=== PATIENT | male | born 1995 | race Caucasian/White ===

== ENCOUNTER 2019-09-26 17:59 | Emergency (ER) | payer OTHER, BC ==
[~2019-09-26] VITALS: Ht 167.6 cm; Wt 86.6 kg
[2019-09-26 18:13] VITALS: BP 118/69
[2019-09-26] MEDS ORDERED: KETOROLAC 30 MG/ML VIAL IVP ONE (18:40)
[2019-09-26] MEDS ORDERED: NACL 0.9% 500 ML IV SCH (18:40)
--- NOTE | 2019-09-26 18:50 | NUR ---
PT C/O RLQ AB PAIN AGGRAVATED BY RT LEG MOVEMENTS, HEMAURIA TODAY. DENIES N/V/D OR CONSTIPATION. EXTREME TENDERNESS TO TOUCH, BOWEL SOUNDS ACTIVE. WENT TO THE ER OF [place] YESTERDAY AND DID CT W/ CONTRAST & U/S, STATES POSSIBLE ENLARGED LYMPH NODE. PT ALERT AND AWAKE. TACHY AT 105. AMBULATORY WITH STEADY GAIT PMH: APPENDECTOMY 5 YEARS AGO MEDS: DISCHARGED WITH TRAMADOL YESTERDAY FROM [place] ER, SOME RELIEF
--- NOTE | 2019-09-26 18:53 | NUR ---
URINE COLLECTED, LAB AT BEDSIDE
--- NOTE | 2019-09-26 19:04 | NUR ---
IV INSERTED AND BOLUS 500 ML NACL STARTED
[2019-09-26 19:06] LABS: BASOPHILS # (AUTO) 0.1 K/uL (0.00-0.22); BASOPHILS % (AUTO) 0.3 % (0.0-2.0); EOSINOPHILS % (AUTO) 0.2 % (0.0-4.0); HEMATOCRIT 45.4 % (36-52); HEMOGLOBIN 15.8 g/dL (12.0-18.0); LYMPHOCYTES # (AUTO) 1.6 K/uL (2.0-11.5); LYMPHOCYTES % (AUTO) 9.3 % (20.5-51.1); MEAN CORPUSCULAR HEMOGLOBIN 32 pg (27-31); MEAN CORPUSCULAR HGB CONC 35 g/dL (33-37); MONOCYTES % (AUTO) 11.3 % (1.7-9.3); NEUTROPHILS # (AUTO) 13.9 K/uL (1.8-7.7); NEUTROPHILS % (AUTO) 78.9 % (42.2-75.2); PLATELET COUNT (AUTO) 225 K/uL (140-450); RED BLOOD CELL COUNT(AUTO) 4.98 MIL/uL (4.20-6.10); WHITE BLOOD COUNT (AUTO) 17.6 K/uL (4.8-10.8)
--- NOTE | 2019-09-26 19:08 | NUR ---
REPORT TO CLAUDIO, PT PENDING XRAYS ANS US, PT ALERT AND AWAKE
--- NOTE | 2019-09-26 19:10 | NUR ---
REPORT GIVEN FROM RAKEL WADDELL. PT IN FOR C/O R LOWER ABD PAIN 04/05 X 2 DAYS. PT AAO X 4. PT ADMITS TO HAVING APENDIX REMOVED X 5 YEARS AGO. X-RAY PENDING. PT RESPIRATIONS ARE EVEN AND UNLABORED. SKIN IS WARM AND DRY TO TOUCH. NS 0.9% 500ML IV FLUDIS RUNNING CONTINOUSLY. IV SITE IT PATENT, NO REDNESS OR SWELLING NOTED. BED LOCKED AND IN LOWEST POSITION.
[2019-09-26 19:19] LABS: PROTHROMBIN TIME 10.3 secs (10.8-13.4)
[2019-09-26 19:20] LABS: ANION GAP 14.6 (8-16); CARBON DIOXIDE 24.9 mmol/L (21-32); CREATININE 0.9 mg/dL (0.6-1.3); POTASSIUM 3.5 mmol/L (3.5-5.1); TOTAL BILIRUBIN 3.1 mg/dL (0.0-1.0)
[2019-09-26 19:24] LABS: APPEARANCE,URINE CLEAR (CLEAR); BILIRUBIN,URINE NEGATIVE (NEGATIVE); BLOOD, URINE TRACE-I (NEGATIVE); COLOR,URINE YELLOW (YELLOW); LEUKOCYTE ESTERASE ,URINE NEGATIVE (NEGATIVE); NITRITE, URINE NEGATIVE (NEGATIVE); PH,URINE 6.5 (5.0-9.0); UGLUCOSE NEGATIVE (NEGATIVE)
[2019-09-26 19:35] LABS: RBC,URINE 0-5 /HPF (0-5); WBC,URINE 0-5 /HPF (0-5)
[2019-09-26] MEDS ORDERED: MORPHINE SULFATE 4 MG/ML SYR IVP ONE (20:15)
[2019-09-26] MEDS ORDERED: PIPERACILLIN/TAZOBACTAM 3.375 GM in DEXTROSE 5% 50 ML IV ONE (20:15)
--- NOTE | 2019-09-26 20:15 | NUR ---
DR GAVE ORDER FOR RECTAL TEMP. TEMP AT 101.2. DR. HUGHES NOTIFIED AND GAVE NEW MED ORDERS.
[2019-09-26] MEDS ORDERED: PIPERACILLIN/TAZOBACTAM 3.375 GM VIAL IV ONE (20:29)
[2019-09-26] MEDS ORDERED: MORPHINE SULFATE 4 MG/ML SYR ONE (20:30)
--- NOTE | 2019-09-26 20:30 | NUR ---
ORDERED ZOSYN 3.375GM 50ML @ RATE OF 100 ML/HR AND MORPHINE IVP 4MG/1ML. MEDICATIONS GIVEN. NADR AT THIS TIME.
--- NOTE | 2019-09-26 21:06 | NUR ---
MOTHER AT BEDSIDE. ZOSYN IV STILL RUNNING. IV SITE PATENT. NO REDNESS SWELLING, OR PAIN NOTED. PT STATES PAIN DECREASED FROM 8/10 LOWER ABD PAIN TO 4/10. PT AAO X4. RESPIRATIONS ARE EVEN AND UNLABORED. SKIN IS WARM AND DRY TO TOUCH. BED LOCKED AND IN LOWEST POSITION.
--- NOTE | 2019-09-26 21:40 | NUR ---
CALLED [facility] [phone] AND GAVE REPORT TO SHAYNA WADDELL FOR PT. DR. FERRARO IS ACCEPTING MD.
--- NOTE | 2019-09-26 21:41 | NUR ---
PT AMBULATED TO RESTROOM WITHOUT ASSISTANCE.
--- NOTE | 2019-09-26 21:45 | NUR ---
Patient to be transferred to [facility] ER. Is being transferred due to ABDOMINAL INFECTION. Receiving facility has accepting physician and available space. ER physician has signed transfer form. Patient or responsible libertarian has agreed to transfer and signed form. Patient belongings inventoried and will be sent with patient FAMILY. Copy of nursing notes, lab reports, EKG, Physicians Orders and X-rays to be sent with patient. Report called to SIOBHAN WADDELL at receiving facility. [facility] ambulance service has been called for transfer. ETA is 2200.
--- NOTE | 2019-09-26 21:47 | NUR ---
[facility] AT BEDSIDE
[2019-09-26 22:26] VITALS: BP 119/72
--- NOTE | 2019-09-30 09:00 | NUR ---
Late entry. Confirmed with RN that 0.9 NS IV completed at 2000
== END 2019-09-26 21:45 | disposition short-term general hospital (02) ==
LOC: MED 17:59
DX: R10.31 Right lower quadrant pain (principal); R31.9 Hematuria, unspecified; Z90.49 Acquired absence of other specified parts of digestive tract
CPT/HCPCS: 36415; 71045; 76700; 80053; 81001; 83605; 85025; 85610; 85730; 87040; 87086; 93005; 96374; 96375; 99285; J1885; J2270; J2543; J7030; Q0092